=== PATIENT | female | born 2000 | race Caucasian/White ===

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

== ENCOUNTER 2021-07-07 20:30 | Emergency (ER) | payer BC, OTHER ==
[2021-07-07 21:01] VITALS: BP 127/83; PULSE 78; TEMP 97.8; BMI 26.5
[2021-07-07] MEDS ORDERED: ACETAMINOPHEN 500 MG TABLET (FP) PO ONE (21:05)
[2021-07-07] MEDS ORDERED: ACETAMINOPHEN 500 MG TABLET (FP) ONE (21:06)
== END 2021-07-07 21:13 | disposition home or self-care (01) ==
LOC: FER 20:30
DX: R51.9 Headache, unspecified (principal); V49.40XA Driver injured in collision with unspecified motor vehicles in traffic accident, initial encounter
CPT/HCPCS: 99283-25

== ENCOUNTER 2023-02-09 08:36 | Emergency (ER) | payer BC, OTHER ==
[2023-02-09 08:44] VITALS: BP 124/78; PULSE 112; RESP 16; TEMP 98; BMI 26.5
[2023-02-09] MEDS ORDERED: ACETAMINOPHEN 500 MG TABLET (FP) PO ONE (08:47)
[2023-02-09] MEDS ORDERED: ACETAMINOPHEN 500 MG TABLET (FP) ONE (09:01)
[2023-02-09 11:16] LABS: THROAT:GRP A STREP NOT DETECTED (NOTDETECTED)
== END 2023-02-09 09:34 | disposition home or self-care (01) ==
LOC: FER 08:36
DX: H92.01 Otalgia, right ear (principal); J02.9 Acute pharyngitis, unspecified; R05.9 Cough, unspecified; R68.83 Chills (without fever); H66.91 Otitis media, unspecified, right ear; Z20.822 Contact with and (suspected) exposure to COVID-19
CPT/HCPCS: 0241U-QW; 87651; 99283-25

== ENCOUNTER 2023-08-19 20:19 | Emergency (ER) | payer OTHER ==
[2023-08-19 20:33] VITALS: BP 134/100; PULSE 118; RESP 20; TEMP 99.3; BMI 25.7
[2023-08-19 20:44] LABS: HCG,QUALITATIVE URINE Negative
[2023-08-19 21:05] LABS: EPITHELIAL CELLS 0-5 /hpf
[2023-08-19] MEDS ORDERED: CEPHALEXIN MONOHYDRATE 500 MG CAPSULE (UD) ONE (21:11)
[2023-08-19] MEDS: CEPHALEXIN MONOHYDRATE 500 MG CAPSULE (UD) PO ONE (21:12)
== END 2023-08-19 21:16 | disposition home or self-care (01) ==
LOC: FER 20:19
DX: N39.0 Urinary tract infection, site not specified (principal); R31.9 Hematuria, unspecified; R35.0 Frequency of micturition; R10.9 Unspecified abdominal pain
CPT/HCPCS: 36415; 81003; 81015; 84703; 87086; 87186; 87491; 87591; 99283-25